=== PATIENT | female | born 1940 | race Caucasian/White ===

== ENCOUNTER 2019-08-22 10:03 | Emergency (ER) | payer SELFPAY ==
[~2019-08-22] VITALS: Ht 152.4 cm; Wt 63.5 kg
[2019-08-22 10:13] VITALS: BP 173/78
--- NOTE | 2019-08-22 10:19 | NUR ---
urine cup handed to pt for sample
[2019-08-22 10:52] VITALS: BP 153/81
--- NOTE | 2019-08-22 10:56 | NUR ---
79 Y/O FEMAE BIBS C/O HIGH BLOOD PRESSURE THIS MORNING, PT TOOK BENZAPRIL AND HYDROCHLOROTHIAZIDE THIS MORNING WELL. STATES SHES HAVING MILD DIZZINESS. DENIES ANY SYNCOPE, N/V, HEADACHE, VISION CHANGES. AAOX4. RESP EVEN AND UNLABORED. LUNG SOUNDS CLEAR IN BILAT LOBES. DENIES ANY PAIN AT THIS TIME
[2019-08-22] MEDS ORDERED: LISINOPRIL 20 MG TAB PO ONE (11:25)
[2019-08-22 11:57] LABS: BASOPHILS % (AUTO) 0.8 % (0.0-2.0); EOSINOPHILS % (AUTO) 0.5 % (0.0-4.0); HEMATOCRIT 41.6 % (36-48); HEMOGLOBIN 13.7 g/dL (12.0-16.0); LYMPHOCYTES # (AUTO) 1.3 K/uL (2.5-16.5); LYMPHOCYTES % (AUTO) 20.1 % (20.5-51.1); MEAN CORPUSCULAR HEMOGLOBIN 28 pg (27-31); MEAN CORPUSCULAR HGB CONC 33 g/dL (33-37); MEAN CORPUSCULAR VOLUME 83.9 fL (80-94); MONOCYTES # (AUTO) 0.3 K/uL (0.8-1.0); MONOCYTES % (AUTO) 5.5 % (1.7-9.3); NEUTROPHILS # (AUTO) 4.6 K/uL (1.8-7.7); NEUTROPHILS % (AUTO) 73.1 % (42.2-75.2); PLATELET COUNT (AUTO) 259 K/uL (140-450); RED BLOOD CELL COUNT(AUTO) 4.96 MIL/uL (4.20-5.40); RED CELL DISTRIBUTION WIDTH 14.4 % (11.6-13.7); WHITE BLOOD COUNT (AUTO) 6.3 K/uL (4.8-10.8)
[2019-08-22 12:06] LABS: ANION GAP 14.6 (8-16); CARBON DIOXIDE 25.5 mmol/L (21-32); CHLORIDE 103 mmol/L (98-107); CREATININE 0.8 mg/dL (0.6-1.3); GLUCOSE 101 mg/dL (74-106); POTASSIUM 4.1 mmol/L (3.5-5.1); SODIUM SERUM 139 mmol/L (136-145); UREA NITROGEN, BLOOD 14 mg/dL (7-18)
[2019-08-22 12:12] LABS: ASPARTATE AMINOTRANSFERASE 27 U/L (15-37)
--- NOTE | 2019-08-22 13:24 | NUR ---
PATIENT ELOPED FROM FACILITY. DISCHARGE INSTRUCTIONS NOT GIVEN TO PATIENT. DR. ROLON NOTIFIED.
== END 2019-08-22 12:45 | disposition left against medical advice (07) ==
LOC: MED 10:03
DX: R51 Headache (principal)
CPT/HCPCS: 36415; 71045; 80053; 85025; 93005; 99285

== ENCOUNTER 2021-04-12 09:01 | Emergency (ER) | payer OTHER ==
[~2021-04-12] VITALS: Ht 147.3 cm; Wt 61.7 kg
[2021-04-12 09:11] VITALS: BP 174/83
--- NOTE | 2021-04-12 09:16 | NUR ---
pt ambulated to bed 11 at this time
--- NOTE | 2021-04-12 09:25 | NUR ---
Note undone in EDM - 04/12/21 at 0936 by [email or web address] 80 Y/O F BIB DAUGHTER C/O DIZZINESS X THIS MORNING AFTER WAKING UP. PT DENIES N/V/D/. 0/10 PAIN AT THIS TIME. PT REPORTS BEING NONCOMPLIANT WITH HTN MEDICATIONS X 1 MONTH, HAS BEEN EATING ALMONDS TO TREAT HTN. PT IS A&O X 4, STEADY GAIT, LUNGS SOUNDS CLEAR BILATERALY, EVEN AND UNLABORED RESPIRATIONS AT THIS TIME. S1, S2 SOUNDS AUSCULTATED. EQUAL STRENGTH IN HANDS AND FEET. NO PITTING EDEMA. ACTIVE BOWEL SOUNDS IN ALL FOUR QUADRANTS, ABD IS SOFT AND NONTENDER. MEDHX: HTN NKA
--- NOTE | 2021-04-12 09:25 | NUR ---
80 Y/O F BIB DAUGHTER C/O DIZZINESS X THIS MORNING AFTER WAKING UP. PT DENIES N/V/D/. 0/10 PAIN AT THIS TIME. PT CRISTINO ANY FALLS/TRAUMA AT THIS TIME. PT REPORTS BEING NONCOMPLIANT WITH HTN MEDICATIONS X 1 MONTH, HAS BEEN EATING ALMONDS TO TREAT HTN. PT IS A&O X 4, STEADY GAIT, LUNGS SOUNDS CLEAR BILATERALY, EVEN AND UNLABORED RESPIRATIONS AT THIS TIME. S1, S2 SOUNDS AUSCULTATED. EQUAL STRENGTH IN HANDS AND FEET. NO PITTING EDEMA. ACTIVE BOWEL SOUNDS IN ALL FOUR QUADRANTS, ABD IS SOFT AND NONTENDER. BED IS LOCKED, LOWEST POSITION, X 1 HANDRAIL UP. MEDHX: HTN NKA
--- NOTE | 2021-04-12 09:25 | NUR ---
EKG AT THE BEDSIDE
--- NOTE | 2021-04-12 09:32 | NUR ---
EKG OBTAINED AT PATIENT BEDSIDE.
--- NOTE | 2021-04-12 09:56 | NUR ---
LABWORK WALKED TO THE LAB
--- NOTE | 2021-04-12 10:01 | NUR ---
PT TAKEN TO CT VIA NINO
--- NOTE | 2021-04-12 10:08 | NUR ---
PT BACK IN ROOM [address]
[2021-04-12 10:22] LABS: BASOPHILS % (AUTO) 0.9 % (0.0-2.0); EOSINOPHILS % (AUTO) 0.6 % (0.0-4.0); HEMATOCRIT 42.7 % (36-48); HEMOGLOBIN 14.3 g/dL (12.0-16.0); LYMPHOCYTES # (AUTO) 0.8 K/uL (2.5-16.5); LYMPHOCYTES % (AUTO) 15.5 % (20.5-51.1); MEAN CORPUSCULAR HEMOGLOBIN 28 pg (27-31); MEAN CORPUSCULAR HGB CONC 34 g/dL (33-37); MEAN CORPUSCULAR VOLUME 82.8 fL (80-94); MONOCYTES # (AUTO) 0.2 K/uL (0.8-1.0); MONOCYTES % (AUTO) 4.5 % (1.7-9.3); NEUTROPHILS # (AUTO) 4.1 K/uL (1.8-7.7); NEUTROPHILS % (AUTO) 78.5 % (42.2-75.2); PLATELET COUNT (AUTO) 239 K/uL (140-450); RED BLOOD CELL COUNT(AUTO) 5.16 MIL/uL (4.20-5.40); RED CELL DISTRIBUTION WIDTH 13.9 % (11.6-13.7); WHITE BLOOD COUNT (AUTO) 5.3 K/uL (4.8-10.8)
[2021-04-12 11:21] LABS: ALBUMIN 4.1 g/dL (3.4-5.0); ANION GAP 13.4 (8-16); ASPARTATE AMINOTRANSFERASE 24 U/L (15-37); CARBON DIOXIDE 26.2 mmol/L (21-32); CHLORIDE 103 mmol/L (98-107); CREATININE 0.7 mg/dL (0.6-1.3); GLUCOSE 101 mg/dL (74-106); POTASSIUM 3.6 mmol/L (3.5-5.1); SODIUM SERUM 139 mmol/L (136-145); TOTAL BILIRUBIN 0.9 mg/dL (0.0-1.0); UREA NITROGEN, BLOOD 15 mg/dL (7-18)
[2021-04-12] MEDS ORDERED: MECL-303 PO (11:33)
[2021-04-12] MEDS ORDERED: MECLIZINE 25 MG TAB PO ONE (11:40)
[2021-04-12 12:11] VITALS: BP 170/80
--- NOTE | 2021-04-12 12:15 | NUR ---
Patient discharged with v/s stable. Written and verbal after care instructions ABOUT DIZZINESS given and explained. Patient alert, oriented and verbalized understanding of instructions. Ambulatory with steady gait. All questions addressed prior to discharge. ID band removed. Patient advised to follow up with PMD. Rx of ANTIVERT given. Patient educated on indication of medication including possible reaction and side effects. Opportunity to ask questions provided and answered.
== END 2021-04-12 12:06 | disposition home or self-care (01) ==
LOC: MED 09:01
DX: R42 Dizziness and giddiness (principal); I10 Essential (primary) hypertension; Z79.899 Other long term (current) drug therapy
CPT/HCPCS: 36415; 70450; 80053; 84484; 85025; 93005; 99285; J8597